=== PATIENT | female | born 1970 | race Caucasian/White ===

== ENCOUNTER 2017-07-24 07:54 | Day surgery (SDC) | payer BC ==
[2017-07-18 08:21] VITALS: BMI 30.9
--- NOTE | 2017-07-19 15:53 | HP ---
HISTORY AND PHYSICAL HISTORY OF PRESENT ILLNESS: The patient is a 47-year-old 6, para 2-0-4-2, who presented to the office with complaints of increasing menorrhagia. Her cycles are lasting at least 7 days and are very heavy with clots. This does interrupt her normal lifestyle and she has requested intervention. She was offered multiple different options and has opted to proceed with diagnostic hysteroscopy with NovaSure endometrial ablation. Endometrial biopsy performed in the office was benign in advance of the surgery. PAST MEDICAL HISTORY: Significant for asthma. PAST SURGICAL HISTORY: 1. D&C in 1991. 2. Salpingo-oophorectomy in 1992 for an ectopic . 3. Bilateral breast augmentation surgery. There were no anesthetic concerns. OBSTETRICAL HISTORY: 7, para 2-0-4-2 with 2 normal vaginal deliveries and 4 miscarriages, one of which was ectopic in nature. Method of contraception is vasectomy. GYNECOLOGIC HISTORY: Unremarkable with no history of any infections to include STDs. FAMILY HISTORY: Noncontributory. SOCIAL HISTORY: The patient is and is a nonsmoker. She denies any alcohol, drugs or any other social concerns of any significance. REVIEW OF SYSTEMS: Confined to history of present illness. PHYSICAL EXAMINATION: Vital signs are stable. The patient is afebrile. In general, this is a well- developed, well-nourished white female in no acute distress. HEENT demonstrates PERRLA, EOMI. Her oropharynx is clear. NECK: Supple and without adenopathy. The thyroid is normal to palpation. Her heart has regular rhythm and rate without murmur. Her lungs are clear to auscultation bilaterally in all avalos. Her abdomen is nondistended, has normoactive bowel sounds, is soft, nontender, without any palpable masses, hepatosplenomegaly or hernias. Her extremities without any cyanosis, clubbing or edema and are nontender to palpation bilaterally. Pelvic examination demonstrates normal external genitalia and BUS with normal vaginal mucosa and cervix. There is no cervical motion tenderness. Uterus is 5 weeks in size, mid plane, mobile, nontender, and normal in shape. The adnexa are normal nontender without mass bilaterally. ASSESSMENT: Menorrhagia. We discussed multiple different potential interventions, and the patient has requested to proceed with diagnostic hysteroscopy with NovaSure endometrial ablation. The risks and complications of the procedure have been thoroughly discussed, including the risk for bleeding, bleeding requiring transfusion, infection, and injury to local structures to specifically include uterine perforation and Asherman syndrome as well as subsequent hematometra. She has understood all of this and agreed to proceed. We are scheduled for the procedure as outlined above on the morning of Monday, July 24, 2017. MMODL / IJN: [id number] /
[~2017-07-24 07:54] MED LIST: DEXAMETHASONE SOD PHOSPHATE 10 MG/ML 1 ML VIAL IV ONE; HYDROmorphone 0.5 MG/0.5 ML SYRINGE IVP PRN; LACTATED RINGERS 1,000 ML IV SCH; LIDOCAINE 1% 20 ML VIAL (10MG/ML) FOR IV START INTRADERMA PRN; ONDANSETRON 4 MG/2 ML VIAL IVP ONE; Pre Op ABX Message 1 EACH MISC MISCELLANE ONE; SCOPOLAMINE 1.5MG/72HR PATCH TRANSDERM ONE
[2017-07-24] MEDS ORDERED: Acetaminophen-Codeine 300-30mg TAB PO PRN ×2 (09:15)
[2017-07-24] MEDS ORDERED: SIMETHICONE 80 MG CHEWABLE PO PRN (09:15)
[2017-07-24] MEDS ORDERED: LACTATED RINGERS 1,000 ML IV SCH (09:15)
[2017-07-24] MEDS ORDERED: KETOROLAC 30 MG/ML 1 ML VIAL IVP PRN (09:15)
[2017-07-24] MEDS ORDERED: METOCLOPRAMIDE 5 MG/ML 2 ML VIAL IVP PRN (09:15)
[2017-07-24] MEDS ORDERED: diphenhydrAMINE 50 MG/ML 1 ML VIAL IVP PRN (09:15)
[2017-07-24] MEDS ORDERED: ONDANSETRON 4 MG/2 ML VIAL IVP PRN (09:15)
[2017-07-24] MEDS ORDERED: fentaNYL (PF) 50 MCG/ML 2 ML AMP ONE (09:21)
[2017-07-24] MEDS ORDERED: KETOROLAC 30 MG/ML 1 ML VIAL ONE (09:21)
[2017-07-24] MEDS ORDERED: PROPOFOL 10 MG/ML 20 ML VIAL IV ONE (09:21)
[2017-07-24] MEDS ORDERED: LIDOCAINE 1% INJ 10MG/ML (20 ML MDV) ONE (09:21)
[2017-07-24] MEDS ORDERED: MIDAZOLAM 2 MG/2 ML VIAL ONE (09:21)
--- NOTE | 2017-07-24 09:50 | P.OP ---
Date of Procedure: 07/24/17 Preoperative Diagnosis: #1. Menorrhagia Postoperative Diagnosis: Same Procedure(s) Performed: #1. Diagnostic hysteroscopy #2. NovaSure endometrial ablation Anesthesia: other (Gen. by facemask) Surgeon: Dionicio Donohue Estimated Blood Loss (ml): 5 IV fluids (ml): 400 Urine output (ml): 25 Pathology: none sent Condition: stable Disposition: PACU Operative Findings: Preoperative pelvic examination demonstrated a roughly 5-6 week sized uterus which was midplane, mobile, and normal in shape. The adnexa were normal and without masses bilaterally. Intraoperatively, the uterus sounded to 9 cm while the cervix was approximate 3.5 cm. The hysteroscopic view of the endometrial cavity demonstrated no pathology to include polyps or fibroids or any other cavitary lesions time. The bilateral tubal ostia were seen. The settings for the NovaSure tool where a length of 5.5 cm, a width of 4.8 cm and a total power 145 W. The total run time was 190 seconds after which time the base unit read "procedure complete." The postprocedural result appeared to be excellent. She is not a likely candidate for vaginal hysterectomy should become necessary in the future. Description of Procedure: The patient was prepped and draped in usual fashion after general anesthesia was administered by the anesthesiologist. A weighted speculum was placed and the bladder drained of approximately 25 mL of clear harry urine. The cervix was grasped with a single-tooth tenaculum and the cervix and uterus sounded to 3.5 cm and 9 cm as noted above. Serial dilation was carried out to admit the diagnostic hysteroscope which was placed to the fundus and serial hysteroscopy carried out throughout. The bilateral tubal ostia were seen and there was no apparent pathology. Once adequate hysteroscopy been carried out, the scope was removed and set aside and further dilation carried out to admit the NovaSure tool. The tool was placed to the fundus, opened, and seated well. The settings on the tool where a length of 5.5 cm, a total width of 4.8 cm, and a total power 145 W. The cavity check was attempted and passed without difficulty. The tool was enabled and the run was started. After a run time of 109 seconds, the base unit read "procedure complete." The tool was closed, removed, and discarded. The diagnostic scope was replaced within the endometrial cavity and the findings appeared excellent. All instrumentation was then removed. One point of bleeding at a single-tooth tenaculum site was made hemostatic with pressure. Estimated blood loss was less than 5 mL. There were no complications. All sponge, instrument, and needle counts were correct. The patient tolerated the procedure well and proceeded to the recovery room in stable condition.
[2017-07-24 10:14] VITALS: TEMP 97.5
[2017-07-24 10:33] VITALS: RESP 16
[2017-07-24 11:10] VITALS: PULSE 73
[2017-07-24 11:21] VITALS: BP 141/85
== END 2017-07-24 11:32 | disposition home or self-care (01) ==
LOC: OR 07:54
PROVIDERS: ATTEND Obstetrics & Gynecology
DX: N92.0 Excessive and frequent menstruation with regular cycle (principal); J45.909 Unspecified asthma, uncomplicated; Z79.899 Other long term (current) drug therapy; Z90.722 Acquired absence of ovaries, bilateral; Z90.79 Acquired absence of other genital organ(s)
CPT/HCPCS: 58563; 81025; J2250; J1100; J2405; J2001; J3010; J1885; J2704